=== PATIENT | male | born 1995 | race Caucasian/White ===

== ENCOUNTER 2021-07-01 19:29 | Emergency (ER) | payer MEDICAID ==
[~2021-07-01] VITALS: Ht 190.5 cm; Wt 76.5 kg
[2021-07-01 19:31] VITALS: BP 140/94
== END 2021-07-01 21:14 | disposition home or self-care (01) ==
LOC: ED 19:39
DX: F10.10 Alcohol abuse, uncomplicated (principal); F15.10 Other stimulant abuse, uncomplicated; Z72.9 Problem related to lifestyle, unspecified; Y90.0 Blood alcohol level of less than 20 mg/100 ml